=== PATIENT | male | born 1955 | race Caucasian/White ===

== ENCOUNTER → 2017-01-23 | Outpatient (CLI) | payer OTHER, MEDICAID | LOC: LAB.O 11:09 | DX: R07.9 Chest pain, unspecified (principal) ==

== ENCOUNTER 2018-08-21 10:10 | Emergency (ER) | payer OTHER, MEDICAID ==
--- NOTE | 2018-08-21 10:38 | CT ---
EXAM: CT Head Without Intravenous Contrast CLINICAL HISTORY: 62 years old and is Male; facial drooping TECHNIQUE: Axial computed tomography images of the head/brain without intravenous contrast. Sagittal and coronal reformatted images were created and reviewed. This CT exam was performed using one or more of the following dose reduction techniques: automated exposure control, adjustment of the mA and/or kV according to patient size, and/or use of iterative reconstruction technique. COMPARISON: No relevant prior studies available. FINDINGS: Limitations: None. Brain: Old lacunar infarct left basal ganglia. No hemorrhage. No significant white matter disease. Ventricles: Unremarkable. No ventriculomegaly. Bones/joints: Unremarkable. No acute fracture. Soft tissues: Unremarkable. Sinuses: Unremarkable as visualized. No acute sinusitis. Mastoid air cells: Mild left mastoid thickening noted. No mastoid effusion. IMPRESSION: No acute changes. Chronic findings as above. Electronically signed by: Shelbi Haas MD 08/21/2018 10:36 AM CDT
--- NOTE | 2018-08-21 10:41 | ED.PDOC ---
History of Present Illness - General Chief Complaint: Neuro Symptoms/Deficits Stated Complaint: R facial drooping, R-sided weakness Time Seen by Provider: 08/21/18 10:11 Source: patient, EMS Exam Limitations: no limitations - History of Present Illness Initial Comments: Obey Hernandez 62 y/o male brought by EMS to er after he was noted to have slurred speech and right sided weakness since 1930H last night 23 August 2018 while vacuuming his car.Then this am talked to a friend in [place] then friend called here at [facility] officer checked on him then called up EMS broug ht here to [facility].His [id number] on arrival; Timing/Duration: constant, other - 15 hours Severity: severe Episode Description: see hpi Improving Factors: nothing Worsening Factors: nothing Associated Symptoms: weakness, other - slurred speech Allergies/Adverse Reactions: Allergies IV DYE Allergy (Uncoded 08/21/18 11:25) Anaphylaxis Review of Systems - Review of Systems Neurological: States: see HPI, weakness, other - see hpi All other Systems: Reviewed and Negative, No Change from Baseline Past Medical History (General) - Patient Medical History Hx Hypertension: Yes Surgical History: appendectomy, tonsillectomy - Social History Hx Tobacco Use: Yes - 30+ yrs Years Tobacco Use: 20 Hx Chewing Tobacco Use: No Family Medical History - Family History Father Family History: No Known Living Status: Hx Family Hypertension: Yes - parents Physical Exam - Physical Exam General Appearance: Alert, Comfortable, No apparent distress Eye Exam: bilateral normal ENT Exam: normal ENT inspection, hearing grossly normal, TMs normal, pharynx normal Neck: supple, normal inspection, trachea midline Respiratory: chest non-tender, lungs clear, no respiratory distress Cardiovascular/Chest: normal peripheral pulses, regular rate, rhythm, no murmur Peripheral Pulses: radial,right: 2+, radial,left: 2+ Gastrointestinal/Abdominal: non tender, soft, no organomegaly Back Exam: normal inspection Extremities Exam: non-tender, normal range of motion Mental Status: alert, 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 Exam: normal hearing, abnormal speech, facial weakness, tongue deviation to L Motor/Sensory: no sensory deficit, positive Babinski's sign, pronator drift (R), weak motor strength RUE, weak motor strength RLE DTR: 3+: Patellar, right, Babinski, left, Babinski, right Skin Exam: normal color, warm/dry Progress - Progress Progress: 08/21/18 10:57 08/21/18 10:15 EKG STAT Vital Signs - 8 hr 08/21/18 10:11 Temperature 97 F L Pulse Rate [ 51 L Apical] Respiratory 20 Rate Blood Pressure 154/76 [Left Arm] O2 Sat by Pulse 96 Oximetry 08/21/18 11:[address] findings on patient no acute stroke but needs to go to [facility] under the services of neurologist;D/W Dr. Roland NAVARRO md for transfer and acceptance. - Results/Orders Results/Orders: Laboratory Tests 08/21/18 08/21/18 11:04 11:22 WBC 6.3 RBC 5.09 Hgb 15.9 Hct 46.8 MCV 92.0 MCH 31.3 H MCHC 34.1 RDW 13.7 Plt Count 236 MPV 7.7 Absolute Neuts (auto) 4.50 Absolute Lymphs (auto) 1.30 Absolute Monos (auto) 0.40 Absolute Eos (auto) 0.00 Absolute Basos (auto) 0.00 Neutrophils % 71.3 Lymphocytes % 21.4 Monocytes % 6.4 Eosinophils % 0.2 L Basophils % 0.7 PT 10.0 INR 1.00 PTT (SP) 25.6 Sodium 138 Potassium 4.1 Chloride 105 Carbon Dioxide 23 Anion Gap 14.1 BUN 17 Creatinine 0.87 BUN/Creatinine Ratio 19.5 POC Glucose 98 Random Glucose 104 Serum Osmolality 277.5 Calcium 9.3 Magnesium 2.1 Creatine Kinase 171 Troponin I < 0.02 - EKG/XRAY/CT CT Ordered: Yes - no acute infarct/hemorrhage;old left lacunar infarct Stroke Information - Onset of Symptoms Symptoms of Stroke: Weakness of limb, Right Hemiparesis Stroke Onset of Symptoms Date: 08/20/18 Stroke Onset of Symptoms Time: 07:30 - Contraindications t-PA Contraindication: Drug Tx Not Indicated - past timeline for administration Departure - Departure Clinical Impression: CVA (cerebral vascular accident) Qualifiers: CVA mechanism: unspecified Qualified Code(s): I63.9 - Cerebral infarction, unspecified Time of Disposition: 11:44 Disposition: Transfer to Hospital Condition: Fair Departure Forms: Patient Portal Self Enrollment Referrals: Daniel Guadalupe MD [Referring] - 1-2 Weeks Transfer to Outside Facility - Transfer Information Accepting Provider:: Dr. Ciarra Yates Accepting Facility: [facility] Reason for Transfer: required specialist not available - neurologist
[2018-08-21 10:48] VITALS: O2SAT 96
[2018-08-21 12:19] VITALS: BP 135/83; TEMP 98
== END 2018-08-21 12:19 | disposition short-term general hospital (02) ==
LOC: ER 10:10
DX: I63.9 Cerebral infarction, unspecified (principal); G81.91 Hemiplegia, unspecified affecting right dominant side; R47.81 Slurred speech; R29.810 Facial weakness; I10 Essential (primary) hypertension; Z87.891 Personal history of nicotine dependence; Z91.041 Radiographic dye allergy status

== ENCOUNTER 2019-01-14 09:50 | Emergency (ER) | payer MEDICAID, OTHER ==
--- NOTE | 2019-01-14 10:38 | ED.PDOC ---
History of Present Illness - General Chief Complaint: General Stated Complaint: left sided facial pain Time Seen by Provider: 01/14/19 10:28 Additional Information: Patient with chief complaint of dental pain and poor oral intake. Patient xena cates that he has had a very poor appetite for the past week. He further says that for the past 3-4 days he has had a toothache in his left upper premolar region and then for the past 1 day he has had pain to his left cheek radiating from the site of the dental pain. Patient indicates he has had fevers and chills but denies nausea and vomiting. He indicates that he feels very weak and has no energy. Patient has had sweats. Patient is status post stroke this past August and has residual right arm and leg weakness but is gradually improving. Patient has no other complaints. - History of Present Illness Allergies/Adverse Reactions: Allergies IV DYE Allergy (Uncoded 08/21/18 11:25) Anaphylaxis Home Medications: Ambulatory Orders Acetaminophen W/ Codeine [Tylenol W/ CODEINE #3] 2 ea PO Q6H PRN #20 01/14/19 Amoxicillin & Pot Clavulanate [Augmentin Tab] 875 mg PO BID 10 Days #20 tab 01/14/19 Review of Systems - Review of Systems Constitutional: States: chills, fever, malaise, weakness EENTM: States: see HPI. Denies: ear pain Respiratory: States: no symptoms reported. Denies: cough, short of breath Cardiology: States: no symptoms reported. Denies: chest pain, palpitations Gastrointestinal/Abdominal: States: no symptoms reported. Denies: nausea, vomiting Musculoskeletal: States: no symptoms reported Skin: States: no symptoms reported Neurological: States: see HPI All other Systems: Reviewed and Negative Past Medical History (General) - Patient Medical History Hx Stroke: Yes Hx of COPD: Yes Hx Congestive Heart Failure: No Hx Hypertension: Yes Hx Diabetes: No Hx Cancer: Yes - Rectal Hx MRSA: No - Vaccination History Hx Influenza Vaccination: No Hx Pneumococcal Vaccination: Yes - Social History Hx Tobacco Use: Yes Hx Chewing Tobacco Use: No Hx Alcohol Use: No Family Medical History - Family History Father Family History: No Known Living Status: Hx Family Hypertension: Yes - parents Physical Exam - Physical Exam General Appearance: Alert, Frail, Unkempt, Other - generally weak; face with mild erthythema and TTP to the left medial cheek adjacent to the nose extending to below the lower lid Ears, Nose, Throat: other - mucous membranes are dry; obvious diffuse dental caries. Mild gone erythema and tenderness to palpation on the buccal surface adjacent to the left maxillary premolar and negative fluctuance or discharge. Neck: non-tender, full range of motion, supple Respiratory: chest non-tender, lungs clear, normal breath sounds, no respiratory distress, no accessory muscle use Cardiovascular/Chest: normal peripheral pulses, regular rate, rhythm, no edema, no gallop Gastrointestinal/Abdominal: normal bowel sounds, non tender, soft, no organomegaly Extremity: non-tender Neurologic: excel specialist II-XII nml as tested, other - right sided arm and leg weakness. Progress - Progress Progress: 01/14/19 12:32 Patient feeling much better at this time status post IV analgesics and antibiotics. Patient's labs are unremarkable including his WBC and lactic acid, and his CT is suggestive of facial cellulitis but not abscess. I have offered patient admission for IV antibiotics but he declines saying that he wishes a trial of outpt abx, and I will discharge with Augmentin and analgesics. Vital signs stable, patient NAD and looks clinically well, and I believe he is safe for discharge with outpatient follow-up. Follow-up instructions, discharge instructions and strict return to ED precautions discussed with patient. Patient voices understanding and willingness to comply with instructions. All laboratory and radiographic results have been discussed with the patient, and all questions answered. Patient happy with plan. - Results/Orders Results/Orders: Abnormal Lab Results 01/14/19 01/14/19 11:05 11:05 RBC 4.43 L Hgb 13.7 L Hct 41.0 L Absolute Neuts (auto) 7.30 H Absolute Monos (auto) 1.10 H Lymphocytes % 16.2 L Monocytes % 10.6 H Eosinophils % 0.5 L Chloride 100 L BUN/Creatinine Ratio 20.8 H Globulin 4.0 H Albumin/Globulin Ratio 0.9 L Laboratory Results - last 24 hr 01/14/19 01/14/19 01/14/19 11:05 11:05 11:05 WBC 10.1 RBC 4.43 L Hgb 13.7 L Hct 41.0 L MCV 92.7 MCH 30.9 MCHC 33.4 RDW 13.2 Plt Count 201 MPV 8.5 Absolute Neuts (auto) 7.30 H Absolute Lymphs (auto) 1.60 Absolute Monos (auto) 1.10 H Absolute Eos (auto) 0.10 Absolute Basos (auto) 0.10 Neutrophils % 72.1 Lymphocytes % 16.2 L Monocytes % 10.6 H Eosinophils % 0.5 L Basophils % 0.6 Sodium 138 Potassium 3.7 Chloride 100 L Carbon Dioxide 27 Anion Gap 14.7 BUN 16 Creatinine 0.77 BUN/Creatinine Ratio 20.8 H Random Glucose 96 Serum Osmolality 276.7 Lactic Acid 0.7 Calcium 9.3 Total Bilirubin 0.5 AST 19 ALT 20 Alkaline Phosphatase 79 Serum Total Protein 7.6 Albumin 3.6 Globulin 4.0 H Albumin/Globulin Ratio 0.9 L EXAM: CT maxillofacial without contrast CLINICAL INDICATION: Facial cellulitis COMPARISON: There is no previous study for comparison. TECHNIQUE: The CT scan was done using contiguous axial 2.5 mm noncontrast sections through the face. This exam was performed according to our departmental dose-optimization program, which includes automated exposure control, adjustment of the mA and/or kV according to patient size and/or use of iterative reconstruction technique. FINDINGS: There is nonspecific subcutaneous edema overlying the left mandible and left cheek region without any discrete fluid collection or abscess. The patient has multiple missing teeth, no periapical dental lucencies or subperiosteal abscesses are noted. The globes, extraocular muscles and optic nerves appear intact, symmetric, and unremarkable. The visualized osseous structures are unremarkable with no fracture or bony destructive process. IMPRESSION: Findings suggesting left-sided facial cellulitis. No evidence of abscess. Departure - Departure Clinical Impression: Facial cellulitis Time of Disposition: 12:27 Disposition: Discharge to Home or Self Care Condition: Fair Departure Forms: ED Discharge - Pt. Copy, Patient Portal Self Enrollment Instructions: Cellulitis and Erysipelas (Skin Infections) Referrals: Martínez Valencia MD [Primary Care Provider] - 1-2 Days Prescriptions: Acetaminophen W/ Codeine [Tylenol W/ CODEINE #3] 2 ea PO Q6H PRN #20 PRN Reason: Pain Amoxicillin & Pot Clavulanate [Augmentin Tab] 875 mg PO BID 10 Days #20 tab Home Medications: Ambulatory Orders Acetaminophen W/ Codeine [Tylenol W/ CODEINE #3] 2 ea PO Q6H PRN #20 01/14/19 Amoxicillin & Pot Clavulanate [Augmentin Tab] 875 mg PO BID 10 Days #20 tab 01/14/19
[2019-01-14] MEDS ORDERED: MORPHINE SULFATE INJ 10 MG/ML VIAL IV ONE (10:42)
[2019-01-14] MEDS ORDERED: SODIUM CHLORIDE 0.9% 1000ML 1,000 ML IVS ONE (10:42)
[2019-01-14] MEDS ORDERED: CLINDAMYCIN IV 900MG 900 MG in PREMIX BAG 1 BAG IVPB ONE (10:43)
[2019-01-14] MEDS ORDERED: CLINDAMYCIN IV 900MG 50 ML IVPB ONE (10:51)
--- NOTE | 2019-01-14 11:29 | CT ---
EXAM: CT maxillofacial without contrast CLINICAL INDICATION: Facial cellulitis COMPARISON: There is no previous study for comparison. TECHNIQUE: The CT scan was done using contiguous axial 2.5 mm noncontrast sections through the face. This exam was performed according to our departmental dose-optimization program, which includes automated exposure control, adjustment of the mA and/or kV according to patient size and/or use of iterative reconstruction technique. FINDINGS: There is nonspecific subcutaneous edema overlying the left mandible and left cheek region without any discrete fluid collection or abscess. The patient has multiple missing teeth, no periapical dental lucencies or subperiosteal abscesses are noted. The globes, extraocular muscles and optic nerves appear intact, symmetric, and unremarkable. The visualized osseous structures are unremarkable with no fracture or bony destructive process. IMPRESSION: Findings suggesting left-sided facial cellulitis. No evidence of abscess. Electronically signed by: Oscar Crandall MD 01/14/2019 11:27 AM [facility]
[2019-01-14 12:42] VITALS: BP 137/86; TEMP 98; O2SAT 98
== END 2019-01-14 12:30 | disposition home or self-care (01) ==
LOC: ER 09:50
DX: L03.211 Cellulitis of face (principal); K02.9 Dental caries, unspecified; K00.0 Anodontia; J44.9 Chronic obstructive pulmonary disease, unspecified; I10 Essential (primary) hypertension; I69.351 Hemiplegia and hemiparesis following cerebral infarction affecting right dominant side; Z85.048 Personal history of other malignant neoplasm of rectum, rectosigmoid junction, and anus; Z87.891 Personal history of nicotine dependence; Z91.041 Radiographic dye allergy status
CPT/HCPCS: 70486; 80053; 83605; 85025; J2270; J3490; J7030

== ENCOUNTER 2019-02-01 13:02 | Emergency (ER) | payer OTHER ==
[2019-02-01 13:24] VITALS: BP 104/60; TEMP 97.6; O2SAT 99
--- NOTE | 2019-02-01 13:32 | ED.PDOC ---
History of Present Illness - General Chief Complaint: General Stated Complaint: circumoral swelling Time Seen by Provider: 02/01/19 13:20 Source: patient Exam Limitations: no limitations - History of Present Illness Initial Comments: 63 yo M with PMH sig for CVA with R sided deficits who presents for gum pain and swelling onset yesterday. Recently dx with facial cellulitis that started with similar sx, completed augmentin outpt after declining admission with resolution of sx until yesterday. Unsure of fever. Denies chills, sore throat, ear pain, runny nose, congestion, cough, CP, SOB, abd pain, n/v/d, urinary sx, FELIZ, neck pain/stiffness. Allergies/Adverse Reactions: Allergies IV DYE Allergy (Uncoded 08/21/18 11:25) Anaphylaxis Home Medications: Ambulatory Orders Acetaminophen W/ Codeine [Tylenol W/ CODEINE #3] 2 ea PO Q6H PRN #20 01/14/19 Amoxicillin & Pot Clavulanate [Augmentin Tab] 875 mg PO BID 10 Days #20 tab 01/14/19 Chlorhexidine Mouth Rinse [Peridex] 0.12 % MT BID #1 bttl 02/01/19 Clindamycin HCl [Cleocin] 300 mg PO Q6H 10 Days #30 capsule 02/01/19 Review of Systems - Review of Systems Constitutional: Denies: chills, fever EENTM: States: mouth pain - upper gums, other - upper gum swelling. Denies: ear pain, nose congestion, throat pain Respiratory: Denies: cough, short of breath Cardiology: Denies: chest pain, palpitations Gastrointestinal/Abdominal: Denies: abdominal pain, constipation, diarrhea, nausea, vomiting Genitourinary: Denies: dysuria, frequency, hematuria Musculoskeletal: Denies: muscle stiffness, neck pain Skin: Denies: change in color, rash Neurological: Denies: headache, numbness, weakness Past Medical History (General) - Patient Medical History Hx Stroke: Yes - August 2018 Hx of COPD: Yes Hx Congestive Heart Failure: No Hx Hypertension: Yes Hx Diabetes: No Hx Cancer: Yes - Rectal Hx MRSA: No - Vaccination History Hx Influenza Vaccination: No Hx Pneumococcal Vaccination: Yes - Social History Hx Tobacco Use: Yes Hx Chewing Tobacco Use: No Hx Alcohol Use: No Family Medical History - Family History Father Family History: No Known Living Status: Hx Family Hypertension: Yes - parents Physical Exam - Physical Exam General Appearance: Alert, Comfortable, No apparent distress, Well Developed, Well Nourished Eye Exam: bilateral normal Ears, Nose, Throat: other - Upper gum edema, erythema; no necrotic tissue. No associated facial swelling, erythema, TTP, indruation, fluctuance. Neck: non-tender, full range of motion, supple Respiratory: lungs clear, normal breath sounds, no respiratory distress, no accessory muscle use Cardiovascular/Chest: regular rate, rhythm, no gallop, no JVD, no murmur Peripheral Pulses: radial,right: 2+, radial,left: 2+ Neurologic: alert, normal mood/affect, other - R sided deficits from previous CVA Progress - Progress Progress: I have explained and reviewed all results with the pt. I explained that emergent conditions may arise and to return to the ER for new, worsening, or any persistent conditions. I've explained the importance of f/u for recheck. All questions and concerns addressed at this time. Pt understands and agrees with plan. Pt well appearing, NAD, is stable for discharge. Misty Beal MD Emergency Medicine Physician Billing Number [id number] Departure - Departure Clinical Impression: Gingivitis, Trench mouth Time of Disposition: 13:28 Disposition: Discharge to Home or Self Care Health Concerns: condition: stable Departure Forms: ED Discharge - Pt. Copy, Patient Portal Self Enrollment Referrals: Martínez Valencia MD [Primary Care Provider] - 1-5 Days Prescriptions: Chlorhexidine Mouth Rinse [Peridex] 0.12 % MT BID #1 bttl Clindamycin HCl [Cleocin] 300 mg PO Q6H 10 Days #30 capsule Home Medications: Ambulatory Orders Acetaminophen W/ Codeine [Tylenol W/ CODEINE #3] 2 ea PO Q6H PRN #20 01/14/19 Amoxicillin & Pot Clavulanate [Augmentin Tab] 875 mg PO BID 10 Days #20 tab 01/14/19 Chlorhexidine Mouth Rinse [Peridex] 0.12 % MT BID #1 bttl 02/01/19 Clindamycin HCl [Cleocin] 300 mg PO Q6H 10 Days #30 capsule 02/01/19 Additional Instructions: Follow up: [facility] As needed, if symptoms worsen Dentist in two days for follow up
== END 2019-02-01 13:44 | disposition home or self-care (01) ==
LOC: ER 13:02
DX: A69.1 Other Vincent's infections (principal); K05.10 Chronic gingivitis, plaque induced; J44.9 Chronic obstructive pulmonary disease, unspecified; I10 Essential (primary) hypertension; Z86.73 Personal history of transient ischemic attack (TIA), and cerebral infarction without residual deficits; Z85.040 Personal history of malignant carcinoid tumor of rectum; Z91.041 Radiographic dye allergy status; Z87.891 Personal history of nicotine dependence

== ENCOUNTER 2019-06-11 15:44 | Emergency (ER) | payer OTHER ==
--- NOTE | 2019-06-11 16:18 | ED.PDOC ---
History of Present Illness - General Chief Complaint: Back Pain or Injury Stated Complaint: Chronic back pain (non trauma) Time Seen by Provider: 06/11/19 16:17 - History of Present Illness Initial Comments: 63-year-old male arrives from his primary care physician's office, under the impression he is to receive an MRI for progressive chronic back pain today through the emergency department. He is having no bowel or bladder in continence, no numbness of the groin, there is no recent trauma. His symptoms have progressed over the last several days, which are worse with standing, relieved sitting and laying down. No fevers. Allergies/Adverse Reactions: Allergies IV DYE Allergy (Uncoded 06/11/19 16:22) Anaphylaxis Home Medications: Ambulatory Orders Aspirin [Aspirin Low Strength] 81 mg PO DAILY 06/11/19 Review of Systems - Review of Systems Review of Systems: 06/11/19 16:28 General: Denies generalized weakness, fever, arthralgia/myalgia HEENT: Denies sore throat, rhinorrhea Cardiovascular: Denies chest pain, palpitations Respiratory: Denies SOB, cough Gastrointestinal: Denies abdominal pain, vomiting, diarrhea : Denies dysuria, frequency Musculoskeletal: Denies extremity pain, extremity swelling. has back pain. Integument: Denies rash, itching Neuro: Denies focal weakness or numbness Psych: Denies depression, hallucinations. Past Medical History (General) - Patient Medical History Hx Stroke: Yes - August 2018 Hx of COPD: Yes Hx Congestive Heart Failure: No Hx Hypertension: Yes Hx Diabetes: No Hx Cancer: Yes - Rectal Hx MRSA: No - Vaccination History Hx Influenza Vaccination: No Hx Pneumococcal Vaccination: Yes - Social History Hx Tobacco Use: Yes Hx Chewing Tobacco Use: No Hx Alcohol Use: No Family Medical History - Family History Father Family History: No Known Living Status: Hx Family Hypertension: Yes - parents Physical Exam - Physical Exam Comments: General Appearance: Patient is awake and alert. Skin: Warm and dry. No diaphoresis. No rash or other lesions. Head: Normocephalic/atraumatic. Eyes: PERRL, lids, conjunctiva and sclera unremarkable. EOMI intact. ENT: No nasal discharge. Oropharynx. Without erythema, exudate, lesions. Moist mucous membranes. Neck: Supple. No LAD. No tenderness. No JVD noted. Respiratory: Normal rate and effort. Breath sounds clear bilaterally. Cardiovascular: Regular rate. Heart sounds normal. No murmur. GI: Abdomen soft, non-distended and non-tender. No rebound/guarding. Bowel sounds normal. Back: No tenderness Musculoskeletal: Extremities- Normal range of motion. No effusion, cyanosis, edema. Neurological: Alert. No facial palsy. Speech clear. Gag intact. No motor deficit, str symmetric. No sensory deficit. Progress - Progress Progress: 06/11/19 16:28 Vital Signs - 24 hr 06/11/19 15:50 Temperature 98.4 F Pulse Rate [ 90 Pulse ox] Respiratory 20 Rate Blood Pressure 155/100 [R brachial] O2 Sat by Pulse 99 Oximetry 06/11/19 16:34 Safety Stop VS, exam remain reassuring. ED dispense of muscle relaxer. no red flags on exam, hx. I have discussed findings, diff dx, plan of care, need for follow-up for outpt MRI, and reasons to return to the ED. Safety Stop (Diagnostic Time-Out): Tachycardia: No Diagnostic Studies: Reviewed Diagnostic Certainty: moderate Patient/family feels safe with discharge: Yes Departure - Departure Clinical Impression: Acute myofascial strain of lumbar region Time of Disposition: 16:29 Disposition: Discharge to Home or Self Care Condition: Good Departure Forms: ED Discharge - Pt. Copy, Patient Portal Self Enrollment Instructions: DI for Low Back Pain Activity: increase activity as tolerated Referrals: Martínez Valencia MD [Primary Care Provider] - 1-2 Days (call for details of MRI appointment) Home Medications: Ambulatory Orders Aspirin [Aspirin Low Strength] 81 mg PO DAILY 06/11/19 Comments: Sheldon Lowry MD Emergency Medicine #[id number]
[2019-06-11 16:21] VITALS: BP 155/100; TEMP 98.4; O2SAT 99
[2019-06-11] MEDS ORDERED: CYCLOBENZAPRINE TAB (ER DISP) 10 MG TAB PO ONE (16:21)
== END 2019-06-11 16:42 | disposition home or self-care (01) ==
LOC: ER 15:44
DX: S39.012A Strain of muscle, fascia and tendon of lower back, initial encounter (principal); J44.9 Chronic obstructive pulmonary disease, unspecified; I10 Essential (primary) hypertension; F17.200 Nicotine dependence, unspecified, uncomplicated; X58.XXXA Exposure to other specified factors, initial encounter; Y92.9 Unspecified place or not applicable

== ENCOUNTER → 2019-06-16 | Outpatient (CLI) | payer OTHER ==
--- NOTE | 2019-06-16 13:50 | MRI ---
EXAM DESCRIPTION: Lumbar Spine w/o Contrast : Magnetic Resonance Imaging. CLINICAL HISTORY: DEGENERATION OF INTERVERTEBRAL DISC COMPARISON: None. TECHNIQUE: Multiplanar, multiple standard sequences, non contrast MRI, lumbar spine. FINDINGS: L5-S1: The disc is well visualized on axial T2 series 501, image 3. Desiccated disc with decreased disc space. Anterior and right side endplate reactive changes. Disc spur complex encroaching on the right foramen and soft tissues foramen borderline stenotic. Posterior broad-based disc bulge in the midline. Moderate to severe narrowing of the left foramen. Degenerative hypertrophy of the right side facet joint and flavum ligaments (canal elements). Rudimentary S1-S2 disc space. L4-L5: Disc desiccation and minimal disc space loss. Grade 1 anterolisthesis 4 mm. Minimal anterior disc bulge. Tiny posterior bulge with hyperintense T2 annular fissure in the mid disc. Posterior superior extrusion of the disc with extrusion superiorly to the subarticular recess and left foramen which are both stenotic. Likely impingement of the left L4 nerve. Moderate narrowing of the right foramen. Previous partial laminectomy left L4. Deformity of the left L4 pars interarticularis with possible spondylolysis. L3-L4: Disc desiccation and minimal disc space loss. Minimal endplate reactive changes to the left of midline. Marked degenerative hypertrophy of the canal elements. AP canal diameter 8.4 mm. Posterior broad-based disc bulge also into the bilateral foramina with disc spur complex encroaching on the left foramen which is nearly stenotic. Mild to moderate narrowing of the right foramen. Disc osteophyte bulge causing left subarticular recess stenosis. L2-L3: Disc normal signal with no bulging and disc space preserved. Degenerative hypertrophy of the canal elements. AP canal diameter 12 mm bilateral foramina are patent. L1-L2: Normal signal in the disc with disc space preserved. Canal elements are unremarkable. Bilateral foramina and canal are patent. Conus terminates just above the disc space. T12-L1: Normal signal in the disc and disc space preserved. Canal elements are unremarkable. Conus terminates just below the disc space. Canal and foramina are patent. Minimal mid lumbar dextroscoliosis. Paravertebral soft tissues inferior muscle atrophy.. Transverse diameter abdominal aorta is 2.7 cm at the T12 level. Distal cord normal signal and caliber. Otherwise normal marrow signal in the remaining vertebral bodies and the posterior elements. Vertebral bodies are not compressed at any level. IMPRESSION: 1. Multiple levels of disc desiccation disc bulging, disc space loss predominantly L3-4 to L5-S1. 2. L4-5 disc desiccation, left posterior lateral spondylosis with disc bulging or herniation and stenosis of the left subarticular recess and left foramen. Possible spondylolysis left L4 pars. Previous left L4 partial laminectomy. 3. Right side spondylosis L5-S1 with disc spur complex causing borderline stenosis of the foramen. Moderate to severe narrowing of the left foramen. 4. Moderate central canal stenosis at L3-4 is multifactorial. No stenosis of the left foramen and stenosis of the left subarticular recess with encroachment on the left L4 nerve # 5. 2.7 cm abdominal aortic aneurysm suspected (proximal). Recommend follow-up every 5 years. Reference: J Am Joanna Radiol 2013;10:789-794. Electronically signed by: Minesh Harrison MD 06/16/2019 1:49 PM CDT
== END ==
LOC: MRI 11:00
PROVIDERS: ATTEND Nurse Practitioner Family
DX: M51.9 Unspecified thoracic, thoracolumbar and lumbosacral intervertebral disc disorder (principal); M51.36 Other intervertebral disc degeneration, lumbar region; M51.37 Other intervertebral disc degeneration, lumbosacral region; M47.896 Other spondylosis, lumbar region; M47.897 Other spondylosis, lumbosacral region; M48.061 Spinal stenosis, lumbar region without neurogenic claudication; M25.78 Osteophyte, vertebrae; I71.4 Abdominal aortic aneurysm, without rupture; Z98.890 Other specified postprocedural states

== ENCOUNTER → 2019-06-29 | Outpatient (CLI) | payer OTHER ==
--- NOTE | 2019-06-29 11:22 | RAD ---
EXAM DESCRIPTION: Chest,2 Views CLINICAL HISTORY: 63 years Male, ENCOUNTER FOR OTHER PREPROCEDURAL EXMINATION COMPARISON: 03/29/2019. TECHNIQUE: PA and lateral radiographs of the chest were obtained. FINDINGS: Trachea is midline.The cardiomediastinal silhouette is normal in size. The pulmonary vasculature is within normal limits. Emphysema. No acute consolidation.No evidence of pleural effusions.No evidence of pneumothorax. IMPRESSION: No acute cardiopulmonary process. Electronically signed by: Aishwarya Amaya MD 06/29/2019 11:20 AM CDT
== END ==
LOC: LAB.O 10:24
PROVIDERS: ATTEND General Practice
DX: Z01.818 Encounter for other preprocedural examination (principal)

== ENCOUNTER → 2019-07-01 | Outpatient (CLI) | payer OTHER ==
--- NOTE | 2019-07-01 12:53 | MRI ---
EXAM DESCRIPTION: Cervical Spine CLINICAL HISTORY: 63 years Male, RADICULOPATHY COMPARISON: None. TECHNIQUE: Multisequence, multiplanar images of the cervical spine obtained without intravenous contrast. FINDINGS: Vertebrae: No acute fracture. No acute compression deformity. Mild cervical lordosis. Minimal grade 1 retrolisthesis of C3 on C4 and C4 on C5 likely secondary to facet hypertrophy. Mild dextrocurvature centered at C4-C5. Spinal cord: No cerebellar ectopia. Normal cord signal. Multilevel flattening of the spinal cord is normal. Discs, facets, spinal canal, and neural foramina: Disc desiccation of the cervical spine. Mild disc space narrowing at C3-C4 through C5-6. Moderate C6-C7 disc space narrowing. C2-C3: No significant findings. C3-C4: Small posterior central disc osteophyte complex. Mild right and moderate left uncovertebral spurring facet arthropathy. Moderate spinal canal stenosis with flattening of the ventral spinal cord. Mild right and moderate left neural foraminal stenosis. C4-C5: Small posterior central disc osteophyte complex with severe right and moderate left uncovertebral spurring. Mild facet arthropathy. Moderate spinal canal stenosis with flattening the ventral spinal cord. Moderate right and mild left neural foraminal stenosis. C5-C6: Moderate right greater than left uncovertebral spurring. Mild facet arthropathy. Moderate spinal canal stenosis with flattening the ventral spinal cord. Severe bilateral neural foraminal stenosis. C6-C7: Moderate right greater than left uncovertebral spurring. Mild to moderate facet arthropathy. Moderate spinal canal stenosis with flattening of ventral spinal cord. Severe right greater than left neural foraminal stenosis. C7-T1: Moderate right greater than left joint spurring and facet arthropathy. Mild spinal canal stenosis with flattening right ventral spinal cord. Mild bilateral neural foraminal stenosis. Other findings: Unremarkable. IMPRESSION: 1. No acute fracture. 2. Cervical spondylosis with slight dextro curvature of the midthoracic spine. 3. Up to moderate spinal canal stenosis and flattening of the spinal cord as above. 4. Multilevel neural foraminal compromise, greatest and severe at bilateral C6, right greater than left C7. Electronically signed by: Nathan Mo MD 07/01/2019 12:52 PM CDT
== END ==
LOC: MRI 10:00
PROVIDERS: ATTEND General Practice
DX: M47.892 Other spondylosis, cervical region (principal); M48.02 Spinal stenosis, cervical region; M41.84 Other forms of scoliosis, thoracic region

== ENCOUNTER 2019-09-06 10:44 | Emergency (ER) | payer OTHER ==
[2019-09-06] MEDS ORDERED: ASPIRIN TABLET 325 MG TAB PO ONE (11:00)
--- NOTE | 2019-09-06 12:03 | CT ---
EXAM DESCRIPTION: Head CLINICAL HISTORY: dizziness hx of CVA COMPARISON: Previous CT head August 21, 2018 TECHNIQUE: Noncontrast head CT was performed with routine protocol. FINDINGS: Old lacunar infarcts in the left basal ganglia region and involving internal and external capsules. Low densities central white matter and body of caudate lacunar infarct on the left. Findings are more extensive than on the previous study consistent with now chronic extension of infarction in this area. Otherwise normal bell-white matter differentiation. Ventricles and sulci are normal for age. No high density hemorrhage, focal edema or shift of the midline. No sulcal effacement. Normal orbital contents. Basilar cisterns appear clear. Intact calvarium with no fracture or lytic lesion. Normal aeration of tympanic cavities and mastoid air cells. No fluid levels in the paranasal sinuses. Skull base appears intact. Symmetrical internal auditory canals. Coronal and sagittal reformatted images confirm the findings. IMPRESSION: No acute intracranial pathologic process. This exam was performed according to our departmental dose-optimization program, which includes automated exposure control, adjustment of the mA and/or kV according to patient size and/or use of iterative reconstruction technique. Total DLP equals 859.97 mGycm. Electronically signed by: Wyatt Colmenares MD 09/06/2019 12:01 PM CDT
--- NOTE | 2019-09-06 12:44 | ED.PDOC ---
History of Present Illness - General Chief Complaint: Neuro Symptoms/Deficits Stated Complaint: dizzy since yesterday 0830 Time Seen by Provider: 09/06/19 12:29 Source: patient, RN notes reviewed, Vital Signs reviewed Exam Limitations: no limitations - History of Present Illness Initial Comments: Patient presents with complaints of dizziness x30 hours. Patient describes the dizziness as lightheadedness. Patient denies any vertiginous signs. The symptoms started yesterday. They are similar to the symptoms he had previously when he had a stroke approximately a year ago. Patient states nothing seems to make the dizziness better or worse. He does feel like he is more unstable to the right than he is normally. This is been ongoing for greater than 24 hours. It is unchanged and is not worsening. Timing/Duration: 24 hours - 24+ hours, constant Severity: moderate Improving Factors: nothing Worsening Factors: other - Trying to walk without his cane Associated Symptoms: headaches Allergies/Adverse Reactions: Allergies IV DYE Allergy (Uncoded 09/06/19 11:00) Anaphylaxis Home Medications: Ambulatory Orders Aspirin [Aspirin Low Strength] 81 mg PO DAILY 06/11/19 Review of Systems - Review of Systems Constitutional: States: see HPI. Denies: chills, fever, malaise, weakness EENTM: States: no symptoms reported. Denies: eye pain, blurred vision, double vision Respiratory: States: no symptoms reported. Denies: cough, short of breath Cardiology: States: no symptoms reported. Denies: chest pain, palpitations, syncope Gastrointestinal/Abdominal: States: no symptoms reported. Denies: abdominal pain, diarrhea, nausea, vomiting Genitourinary: States: no symptoms reported Musculoskeletal: States: no symptoms reported. Denies: back pain, neck pain Skin: States: no symptoms reported. Denies: change in color, rash Neurological: States: headache, pre-existing deficit - Right-sided weakness status post stroke 1 year ago., other - Patient with dizziness and feels like he is falling to the right. Endocrine: States: no symptoms reported Hematologic/Lymphatic: States: no symptoms reported All other Systems: No Change from Baseline Past Medical History (General) - Patient Medical History Hx Seizures: No Hx Stroke: Yes - CVA 2019 Hx Dementia: No Hx Asthma: No Hx of COPD: No Hx Cardiac Disorders: No Hx Congestive Heart Failure: No Hx Pacemaker: No Hx Hypertension: Yes Hx Diabetes: No Hx Gastroesophageal Reflux: No Hx Renal Disease: No Hx Cancer: No Hx of HIV: No Hx Hepatitis C: No Hx MRSA: No Surgical History: no surgical history - Vaccination History Hx Tetanus, Diphtheria Vaccination: Yes Hx Influenza Vaccination: Yes Hx Pneumococcal Vaccination: Yes Immunizations Up to Date: Yes - Social History Hx Tobacco Use: Yes Hx Chewing Tobacco Use: Yes Hx Alcohol Use: No Hx Substance Use: Yes Hx Substance Use Treatment: No Hx Depression: No Feels Threatened In Home Enviroment: No Feels Threatened In a Relationship: No Hx Physical Abuse: No Hx Emotional Abuse: No Hx Suspected Abuse: No - Female History Patient : No Family Medical History - Family History Father Family History: No Known Living Status: Hx Family Asthma: No Hx Family Congestive Heart Failure: No Hx Family Hypertension: Yes - parents Physical Exam - Physical Exam General Appearance: Alert, Comfortable, Well Developed, Well Groomed, Well H ydrated, Well Nourished Eye Exam: bilateral normal Ears, Nose, Throat: hearing grossly normal, normal ENT inspection, normal pharynx Neck: non-tender, full range of motion, supple, normal inspection Respiratory: chest non-tender, lungs clear, normal breath sounds, no respiratory distress, no accessory muscle use Cardiovascular/Chest: normal peripheral pulses, regular rate, rhythm, no edema, no gallop, no JVD, no murmur Peripheral Pulses: radial,right: 2+, radial,left: 2+ Gastrointestinal/Abdominal: normal bowel sounds, non tender, soft Rectal Exam: deferred Back Exam: normal inspection, no CVA tenderness, no vertebral tenderness Extremity: non-tender, no pedal edema, no calf tenderness, other - Right hand weakness and right arm weakness. These are pre-existing from his previous stroke. 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 These are pre-existing from his previous stroke. Skin Exam: normal color, warm/dry Lymphatic: no adenopathy Progress - Progress Progress: Differential diagnosis: CVA, dehydration, TIA, vertigo among others. 09/06/19 14:26 Patient's work-up is relatively unremarkable. Patient still has dizziness with falling to the right and right-sided weakness that is old. Plan on admission for further evaluation with MR and ultrasound. I discussed this plan of care with the patient he voices understanding and agreement. There is a neuro consult pending. I have discussed this patient with Kyler Macias NP and he is excepted the patient for admission. Angel Ly M.D. #[id number] - Results/Orders Results/Orders: EXAM DESCRIPTION: Head CLINICAL HISTORY: dizziness hx of CVA COMPARISON: Previous CT head August 21, 2018 TECHNIQUE: Noncontrast head CT was performed with routine protocol. FINDINGS: Old lacunar infarcts in the left basal ganglia region and involving internal and external capsules. Low densities central white matter and body of caudate lacunar infarct on the left. Findings are more extensive than on the previous study consistent with now chronic extension of infarction in this area. Otherwise normal bell-white matter differentiation. Ventricles and sulci are normal for age. No high density hemorrhage, focal edema or shift of the midline. No sulcal effacement. Normal orbital contents. Basilar cisterns appear clear. Intact calvarium with no fracture or lytic lesion. Normal aeration of tympanic cavities and mastoid air cells. No fluid levels in the paranasal sin uses. Skull base appears intact. Symmetrical internal auditory canals. Coronal and sagittal reformatted images confirm the findings. IMPRESSION: No acute intracranial pathologic process. This exam was performed according to our departmental dose-optimization program, which includes automated exposure control, adjustment of the mA and/or kV according to patient size and/or use of iterative reconstruction technique. Total DLP equals 859.97 mGycm. Electronically signed by: Wyatt Colmenares MD 09/06/2019 12:01 EKG performed on 06 September 2019 at 1054 hrs.: Normal sinus rhythm at 86 bpm, no rmal axis deviation, no ST or T wave changes, normal EKG. No EKG available for comparison. 09/06/19 11:01 EKG Assessment ONCE Chest,1 View [RAD] Stat 09/06/19 11:15 EKG STAT Laboratory Results - last 24 hr 09/06/19 09/06/19 09/06/19 11:08 11:10 11:10 WBC 6.6 RBC 3.78 L Hgb 11.4 L Hct 34.2 L MCV 90.5 MCH 30.1 MCHC 33.2 RDW 15.0 H Plt Count 336 MPV 7.6 Absolute Neuts (auto) 3.30 Absolute Lymphs (auto) 2.50 Absolute Monos (auto) 0.60 Absolute Eos (auto) 0.20 Absolute Basos (auto) 0.00 Neutrophils % 50.2 Lymphocytes % 37.1 Monocytes % 9.4 H Eosinophils % 2.6 Basophils % 0.7 PT INR PTT (SP) Sodium 139 Potassium 4.4 Chloride 104 Carbon Dioxide 26 Anion Gap 13.4 BUN 16 Creatinine 0.91 BUN/Creatinine Ratio 17.6 POC Glucose 108 H Random Glucose 107 H Serum Osmolality 279.2 Calcium 9.3 Total Bilirubin 0.5 AST 20 ALT 15 Alkaline Phosphatase 110 Creatine Kinase 68 CK-MB (CK-2) 2.2 CK-MB (CK-2) % Not Reportable Troponin I < 0.02 Serum Total Protein 7.1 Albumin 3.5 Globulin 3.6 H Albumin/Globulin Ratio 1.0 L 09/06/19 11:10 WBC RBC Hgb Hct MCV MCH MCHC RDW Plt Count MPV Absolute Neuts (auto) Absolute Lymphs (auto) Absolute Monos (auto) Absolute Eos (auto) Absolute Basos (auto) Neutrophils % Lymphocytes % Monocytes % Eosinophils % Basophils % PT 9.8 INR < 1.00 PTT (SP) 24.6 Sodium Potassium Chloride Carbon Dioxide Anion Gap BUN Creatinine BUN/Creatinine Ratio POC Glucose Random Glucose Serum Osmolality Calcium Total Bilirubin AST ALT Alkaline Phosphatase Creatine Kinase CK-MB (CK-2) CK-MB (CK-2) % Troponin I Serum Total Protein Albumin Globulin Albumin/Globulin Ratio EXAM DESCRIPTION: Chest,1 View CLINICAL HISTORY: 63 years Male, dizzy COMPARISON: Previous study June 29, 2019 TECHNIQUE: AP portable chest. FINDINGS: Heart size is normal with normal pulmonary vascularity. No consolidating infiltrate. No pulmonary mass or worrisome nodule. No pneumothorax or pleural effusion. Bones are osteoporotic. IMPRESSION: No acute process is identified in the chest. Electronically signed by: Wyatt Colmenares MD 09/06/2019 1:13 Vital Signs 09/06/19 09/06/19 09/06/19 11:03 12:00 13:10 Temperature 97.6 F 97.6 F 97.3 F L Pulse Rate [ 81 73 71 Left Radial] Respiratory 20 20 18 Rate Blood Pressure 121/84 124/74 119/79 [Left Arm] O2 Sat by Pulse 99 97 94 L Oximetry - EKG/XRAY/CT CT Ordered: Yes CT Interpretation Call Back: No Departure - Departure Clinical Impression: Dizziness Anemia Qualifiers: Anemia type: unspecified type Qualified Code(s): D64.9 - Anemia, unspecified Time of Disposition: 12:53 Disposition: Admit Patient Condition: Fair Departure Forms: ED Discharge - Pt. Copy, Patient Portal Self Enrollment Referrals: Martínez Valencia MD [Primary Care Provider] - 1-2 Weeks Home Medications: Ambulatory Orders Aspirin [Aspirin Low Strength] 81 mg PO DAILY 06/11/19 Decision To Admit - Decistion To Admit Decision to Admit Date: 09/06/19 Decision to Admit Time: 12:20
[2019-09-06] MEDS ORDERED: ACETAMINOPHEN W/COD #3 TAB 1 EA TAB PO ONE (12:53)
--- NOTE | 2019-09-06 13:14 | RAD ---
EXAM DESCRIPTION: Chest,1 View CLINICAL HISTORY: 63 years Male, dizzy COMPARISON: Previous study June 29, 2019 TECHNIQUE: AP portable chest. FINDINGS: Heart size is normal with normal pulmonary vascularity. No consolidating infiltrate. No pulmonary mass or worrisome nodule. No pneumothorax or pleural effusion. Bones are osteoporotic. IMPRESSION: No acute process is identified in the chest. Electronically signed by: Wyatt Colmenares MD 09/06/2019 1:13 PM CDT
[2019-09-06 13:26] VITALS: TEMP 97.3; O2SAT 94
[2019-09-06 15:07] VITALS: BP 140/98
== END 2019-09-06 15:11 | disposition still patient (30) ==
LOC: ER 10:44
DX: R42 Dizziness and giddiness (principal); R51 Headache; D64.9 Anemia, unspecified; I10 Essential (primary) hypertension; F17.200 Nicotine dependence, unspecified, uncomplicated; Z53.29 Procedure and treatment not carried out because of patient's decision for other reasons; Z79.82 Long term (current) use of aspirin; Z86.73 Personal history of transient ischemic attack (TIA), and cerebral infarction without residual deficits

== ENCOUNTER → 2019-09-20 | Outpatient (CLI) | payer OTHER ==
--- NOTE | 2019-09-20 12:07 | RAD ---
EXAM DESCRIPTION: Shoulder,Right 2 or More Views CLINICAL HISTORY: PAIN IN RIGHT SHOULDER COMPARISON: Chest x-ray dated 06 September 2019 TECHNIQUE: 4 views FINDINGS: The examination reveals some inferior subluxation of the humeral head in relation of the glenoid. Mild osteopenia is observed. No true dislocation is seen. No fracture is detected. IMPRESSION: Anterior subluxation of the humerus is observed in relation to the right glenoid. This may be the result of a joint effusion. Electronically signed by: Enrique Hess MD 09/20/2019 12:05 PM CDT
--- NOTE | 2019-09-20 12:08 | RAD ---
EXAM DESCRIPTION: Shoulder,Left 2 or More Views CLINICAL HISTORY: PAIN IN LEFT SHOULDER COMPARISON: None. TECHNIQUE: 4 views left FINDINGS: I see no bone joint or soft tissue abnormality. IMPRESSION: Normal left shoulder. Electronically signed by: Enrique Hess MD 09/20/2019 12:06 PM CDT
== END ==
LOC: RAD 09:00
PROVIDERS: ATTEND Orthopaedic Surgery
DX: S43.011A Anterior subluxation of right humerus, initial encounter (principal); M25.411 Effusion, right shoulder; M25.512 Pain in left shoulder

== ENCOUNTER → 2019-09-29 | Outpatient (CLI) | payer OTHER ==
--- NOTE | 2019-09-30 08:41 | MRI ---
Study: MRI of the Left Shoulder. Indication: PAIN Technique: Multiplanar, multi sequence MRI of the left shoulder was obtained without intravenous contrast. Comparison: None. Findings: Mild AC joint osteoarthritis. Type I acromion with mild lateral downsloping. Full-thickness, fullwidth supraspinatus and infraspinatus tendon tearing with retraction of torn tendon fibers to the glenohumeral joint line. Subscapularis tendinosis. Teres minor tendon intact. Mild atrophy and grade 1-2 fatty infiltration rotator cuff musculature. Intracapsular long head biceps tendinosis and attenuation. Circumferential labral truncation/degeneration. Mild glenohumeral joint osteoarthritis with small joint effusion. No acute fracture. Intramuscular edema infraspinatus muscle belly. Impression: Retracted full-thickness, fullwidth supraspinatus and infraspinatus tendon tearing. Subscapularis tendinosis. Mild atrophy and grade 1-2 fatty infiltration rotator cuff musculature. Intracapsular long head biceps tendinosis and attenuation. Circumferential labral truncation and degeneration. Mild glenohumeral joint osteoarthritis with small joint effusion. Mild AC joint osteoarthritis. Electronically signed by: Ej Manzano MD 09/30/2019 8:39 AM CDT
== END ==
LOC: MRI 13:00
PROVIDERS: ATTEND General Practice
DX: M75.102 Unspecified rotator cuff tear or rupture of left shoulder, not specified as traumatic (principal); M75.92 Shoulder lesion, unspecified, left shoulder; M62.512 Muscle wasting and atrophy, not elsewhere classified, left shoulder; S43.432A Superior glenoid labrum lesion of left shoulder, initial encounter; M19.012 Primary osteoarthritis, left shoulder; M25.412 Effusion, left shoulder

== ENCOUNTER 2020-04-10 08:56 | Emergency (ER) | payer OTHER ==
--- NOTE | 2020-04-10 09:36 | CT ---
EXAM DESCRIPTION: CT head without contrast CLINICAL HISTORY: neuro deficit COMPARISON: Previous CT head September 06, 2019 TECHNIQUE: Noncontrast head CT was performed with routine protocol. FINDINGS: Old lacunar infarcts of the left head of caudate nucleus and left basal ganglial region extending into the external capsule and centrum semiovale. This is unchanged compared to the previous study. The bell matter stripe appears preserved. Normal bell-white matter differentiation. Ventricles and sulci are mildly prominent, not unexpected for age. No high density hemorrhage, focal edema or shift of the midline. No sulcal effacement. Normal orbital contents. Basilar cisterns appear clear. Intact calvarium with no fracture or lytic lesion. Normal aeration of tympanic cavities and mastoid air cells. No fluid levels in the paranasal sinuses. Skull base appears intact. Symmetrical internal auditory canals. IMPRESSION: No acute intracranial pathologic process. This exam was performed according to our departmental dose-optimization program, which includes automated exposure control, adjustment of the mA and/or kV according to patient size and/or use of iterative reconstruction technique. Total DLP equals 752.48 mGycm. Electronically signed by: Wyatt Colmenares MD 04/10/2020 9:34 AM [facility]
[2020-04-10 09:44] VITALS: TEMP 97.9
--- NOTE | 2020-04-10 10:12 | ED.PDOC ---
History of Present Illness - General Chief Complaint: Neuro Symptoms/Deficits Stated Complaint: possible stroke Time Seen by Provider: 04/10/20 09:05 Source: patient, family Additional Information: The patient is a 64-year-old male that presents to the emergency department complaints of having a stroke. He states that he woke up this morning and he was doing fine at about 8:45 AM he noticed he was unable to move his right upper extremity and has trouble moving his right lower extremity. He states that he had a prior stroke and had similar presentation.He states that after his last stroke he had below 90% paralysis in the right upper extremity and lower extremity but he had got better right up to about 30% he states that he was able to move his right UPPER and lower extremities Until about 845 this morning - History of Present Illness Initial Comments: onset 8:45 Severity: moderate Improving Factors: nothing Worsening Factors: nothing Associated Symptoms: weakness Allergies/Adverse Reactions: Allergies IV DYE Allergy (Uncoded 09/06/19 11:00) Anaphylaxis Home Medications: Ambulatory Orders Aspirin [Aspirin Low Strength] 81 mg PO DAILY 06/11/19 Review of Systems - Review of Systems Constitutional: Denies: chills, fever EENTM: Denies: tearing, ear pain, nose pain Respiratory: Denies: cough, short of breath, stridor Cardiology: Denies: chest pain, palpitations, syncope Gastrointestinal/Abdominal: Denies: abdominal pain, diarrhea, nausea Genitourinary: Denies: discharge, frequency, hematuria Neurological: States: paresthesia, weakness. Denies: anxiety, depressed Endocrine: Denies: intolerance to cold, intolerance to heat Hematologic/Lymphatic: Denies: anemia, easy bleeding, easy bruising Past Medical History (General) - Patient Medical History Hx Seizures: No Hx Stroke: Yes - CVA 2019 Hx Dementia: No Hx Asthma: No Hx of COPD: No Hx Cardiac Disorders: No Hx Congestive Heart Failure: No Hx Pacemaker: No Hx Hypertension: Yes Hx Diabetes: No Hx Gastroesophageal Reflux: No Hx Renal Disease: No Hx Cancer: No Hx of HIV: No Hx Hepatitis C: No Hx MRSA: No - Vaccination History Hx Tetanus, Diphtheria Vaccination: Yes Hx Influenza Vaccination: Yes Hx Pneumococcal Vaccination: Yes - Social History Hx Tobacco Use: Yes Hx Chewing Tobacco Use: Yes Hx Alcohol Use: No Hx Substance Use: Yes Hx Substance Use Treatment: No Hx Depression: No Hx Physical Abuse: No Hx Emotional Abuse: No Hx Suspected Abuse: No - Female History Patient : No Family Medical History - Family History Father Family History: No Known Living Status: Hx Family Asthma: No Hx Family Congestive Heart Failure: No Hx Family Hypertension: Yes - parents Physical Exam - Physical Exam General Appearance: Alert Eye Exam: bilateral normal ENT Exam: normal ENT inspection, hearing grossly normal Neck: non-tender, full range of motion, supple, normal inspection Respiratory: chest non-tender, lungs clear, normal breath sounds, no respiratory distress, no accessory muscle use Cardiovascular/Chest: normal peripheral pulses, regular rate, rhythm Peripheral Pulses: radial,right: 2+, radial,left: 2+ Gastrointestinal/Abdominal: normal bowel sounds, non tender, soft, no organomegaly Back Exam: normal inspection, no CVA tenderness, no vertebral tenderness Extremities Exam: non-tender, normal range of motion 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 Think he has a stroke. He states that Onset of symptoms 1:45 AM. discussed the benefits risk of TPA With the patient he states that he will talk to his family and primary care physician and decide. Patient states that he had a GI bleed about a month ago and bleed for about a month after , But this to greater than 21 days, told the patient this is not an absolute contraindication since its greater than 21 days . he verbalized understanding and state she will talk to his PCP and get back to me the decision The patient states that he would not take TPA at this time. The risk and benefit explained again at this time the patient states that he has decided not to take TPA that last time he had a stroke did not take TPA. Patient made informed decision is alert oriented x3. NIH unchanged . see NIH sheet 04/10/20 10:04 EXAM DESCRIPTION: CT head without contrast CLINICAL HISTORY: neuro deficit COMPARISON: Previous CT head September 06, 2019 TECHNIQUE: Noncontrast head CT was performed with routine protocol. FINDINGS: Old lacunar infarcts of the left head of caudate nucleus and left basal ganglial region extending into the external capsule and centrum semiovale. This is unchanged compared to the previous study. The bell matter stripe appears preserved. Normal bell-white matter differentiation. Ventricles and sulci are mildly prominent, not unexpected for age. No high density hemorrhage, focal edema or shift of the midline. No sulcal effacement. Normal orbital contents. Basilar cisterns appear clear. Intact calvarium with no fracture or lytic lesion. Normal aeration of tympanic cavities and mastoid air cells. No fluid levels in the paranasal sinuses. Skull base appears intact. Symmetrical internal auditory canals. IMPRESSION: No acute intracranial pathologic process. This exam was performed according to our departmental dose-optimization program, which includes automated exposure control, adjustment of the mA and/or kV according to patient size and/or use of iterative reconstruction technique. Total DLP equals 752.48 mGycm. Electro 04/10/20 10:31 04/10/20 10:48 04/11/20 03:40 - EKG/XRAY/CT EKG: Sinus, RBBB, nonspecific ST T wave Chg Comments: rate 88, [place] , QTC WIITHIN NORMAL LIMITS Departure - Departure Clinical Impression: Cerebrovascular accident, Anemia Disposition: Transfer to Hospital Departure Forms: ED Discharge - Pt. Copy, Patient Portal Self Enrollment Referrals: Martínez Valencia MD [Primary Care Provider] - 1-2 Weeks Home Medications: Ambulatory Orders Aspirin [Aspirin Low Strength] 81 mg PO DAILY 06/11/19
--- NOTE | 2020-04-10 10:23 | RAD ---
EXAM DESCRIPTION: Chest,1 View CLINICAL HISTORY: 64 years Male, HYPOXIA COMPARISON: Previous study September 06, 2019 TECHNIQUE: AP portable chest. FINDINGS: Heart size is normal with normal pulmonary vascularity. No consolidating infiltrate. No pulmonary mass or worrisome nodule. No pneumothorax or pleural effusion. Bones are osteopenic. IMPRESSION: No acute process is identified in the chest. Electronically signed by: Wyatt Colmenares MD 04/10/2020 10:21 AM [facility]
[2020-04-10 11:49] VITALS: BP 101/73; O2SAT 99
== END 2020-04-10 11:48 | disposition short-term general hospital (02) ==
LOC: ER 08:56
DX: I63.9 Cerebral infarction, unspecified (principal); D64.9 Anemia, unspecified; I45.10 Unspecified right bundle-branch block; I10 Essential (primary) hypertension; F17.200 Nicotine dependence, unspecified, uncomplicated; Z86.73 Personal history of transient ischemic attack (TIA), and cerebral infarction without residual deficits; Z79.82 Long term (current) use of aspirin; Z91.041 Radiographic dye allergy status